=== PATIENT | female | born 1955 | race Caucasian/White ===

== ENCOUNTER 2021-11-14 17:21 | Emergency (ER) | payer MEDICARE, OTHER | END 2021-11-14 18:30 | disposition left against medical advice (07) | LOC: ER 17:21 | DX: R05.9 Cough, unspecified (principal); Z53.21 Procedure and treatment not carried out due to patient leaving prior to being seen by health care provider ==

== ENCOUNTER → 2022-01-06 | Outpatient (CLI) | payer MEDICARE, OTHER ==
--- NOTE | 2022-01-06 13:52 | DIREP ---
PROCEDURE:XRAY KNEE 2 VWS-RT COMPARISON:None. INDICATIONS:PAIN IN RT KNEE FINDINGS: BONES:Normal. JOINTS:Mild tricompartmental degenerative changes. This is largest in the lateral compartment. No joint effusion. SOFT TISSUES:Normal. OTHER:No additional findings. CONCLUSION:Degenerative changes without acute bony abnormality. Dictated by: Traci Senior M.D. on 01/06/2022 at 01:49 PM
== END | disposition home or self-care (01) ==
LOC: RAD 12:49
PROVIDERS: ATTEND Specialist
DX: M17.11 Unilateral primary osteoarthritis, right knee (principal); M25.561 Pain in right knee
CPT/HCPCS: 73560

== ENCOUNTER 2022-04-11 02:22 | Emergency (ER) | payer MEDICARE, OTHER ==
[~2022-04-11] VITALS: Ht 154.9 cm; Wt 54.9 kg
[2022-04-11 02:25] VITALS: BP 144/98
--- NOTE | 2022-04-11 02:25 | NUR ---
ARRIVAL ARRIVED VIA EMS. ALERT AND ORIENTED X3. SOB, CHEST PAIN WITH INSPIRATION FOR 5 DAYS, WORSENING TODAY. GRUNTING NOTED, WHEEZING BILAT. RR-26. O2 SAT 90% ON RA. NOTIFIED DR. VILLEDA. EKG IN PROCESS, ALL ORDERS ADMINISTERED ORDERED.
--- NOTE | 2022-04-11 02:34 | ER.PDOC ---
General Stated Complaint: SOB Time seen by MD: 02:31 Source: patient Exam Limitations: no limitations History of Present Illness Initial Comments Shortness of breath worse with exertion and right chest pain with inspiration for 5 days. No fever or chills. No cough. Patient does not use oxygen during the day but uses 2 L of oxygen at night. When EMS arrived on scene, her oxygen saturation was 84% on room air. Severity: moderate Prior Episodes/Possible Cause: occasional episodes, chronic episodes Modifying Factors: improves with albuterol nebulizer Associated Symptoms: chest pain (right with inspiration), wheezing Allergies: Coded Allergies: No Known Allergies (Unverified , 04/11/22) Past Medical History Medical History: COPD Family History Significant Family History: no pertinent family hx Social History Smoking: non-smoker Alcohol Use: none Drug Use: none Review of Systems Constitutional: no symptoms reported EENTM: no symptoms reported Respiratory: see HPI Cardiovascular: see HPI Gastrointestinal: no symptoms reported All Other Systems: Reviewed and Negative Physical Exam General Appearance: WD/WN, Moderate Distress HEENT: PERRL/EOMI, Normal ENT Inspection, TMs Normal, Pharynx Normal Neck: Non-Tender, Full Range of Motion, Supple, Normal Inspection Respiratory: chest non-tender, respiratory distress, crackles, wheezing Cardiovascular: Normal Peripheral Pulses, Regular Rate, Rhythm, No Edema, No Gallop, No JVD, No Murmur Gastrointestinal: Normal Bowel Sounds, No Organomegaly, No Pulsatile Mass, Non Tender, Soft Extremities: Normal Range of Motion, Non-Tender, Normal Inspection, No Pedal Edema, No Calf Tenderness, Normal Capillary Refill Neurologic/Psychiatric: manager of global II-XII NML as Tested, No Motor/Sensory Deficits, Alert, Normal Mood/Affect, Oriented x 3 Skin: Normal Color, Warm/Dry Lymphatic: No Adenopathy Results/Orders Results/Orders Orders - CHRISTIANA MCKINNEY MD Cbc With Auto Diff (04/11/22 02:29) Comprehensive Metabolic Panel (04/11/22 02:29) Creatine Kinase (04/11/22 02:29) Creatine Kinase Mb (04/11/22 02:29) Probnp B-Type Retrimmer (04/11/22 02:29) D-Dimer (04/11/22 02:29) PT (04/11/22 02:29) Partial Thromboplastin Time. (04/11/22 02:29) Blood Culture (04/11/22 02:29) Ekg-Routine (04/11/22 02:29) Xr Chest 1v (04/11/22 02:29) Troponin I High Sensitivity (04/11/22 02:29) Lactic Acid(Ml) (04/11/22 02:29) Procalcitonin (04/11/22 02:29) Arterial Blood Gas (04/11/22 02:29) Covid19 Antigen Reta Sarah (04/11/22 02:29) Ipratropium/Albuterol Sulfate (Duo 0.5-3 (04/11/22 02:29) 0.9 % Sodium Chloride (Ns 1000ml) (04/11/22 03:51) Ceftriaxone Sodium (Rocephin) (04/11/22 03:51) Azithromycin (Zithromax) (04/11/22 03:51) Cta Chest (04/11/22 03:51) 0.9 % Sodium Chloride (Ns 100ml) (04/11/22 04:16) 0.9 % Sodium Chloride (Ns 1000ml) (04/11/22 04:16) 0.9 % Sodium Chloride (Ns 250ml) (04/11/22 04:20) Cefazolin Sodium/Dextrose,Iso (Ancef 2 G (04/11/22 04:27) Cefazolin Sodium/Dextrose,Iso (Ancef 2 G (04/11/22 04:30) Sodium Chloride 0.45 % (Hns 1000ml) (04/11/22 05:34) Vital Signs Date Time Temp Pulse Resp B/P (MAP) Pulse Ox O2 Delivery O2 Flow Rate FiO2 04/11/22 04:53 98.9 82 24 132/82 (99) 93 Nasal Cannula* 2 28 04/11/22 02:25 98.9 71 26 144/98 (113) 90 Room Air* 0 21 04/11/22 02:25 98.9 71 26 90 04/11/22 02:25 98.9 71 26 Administered Medications Medications (Trade) Dose Ordered Sig/Velasquez Route PRN Reason Start Time Stop Time Status Last Admin Dose Admin Albuterol/ Ipratropium (Duo 0.5-3(2.5) Mg/3 ml) 3 ml STAT STAT IH 04/11/22 02:29 04/11/22 02:32 DC 04/11/22 02:57 3 ML Azithromycin 500 mg/Sodium Chloride 250 ml @ 175 mls/hr STAT STAT IV 04/11/22 03:51 04/11/22 05:16 DC 04/11/22 04:30 175 MLS/HR Ceftriaxone Sodium 2000 mg/ Sodium Chloride 100 ml @ 100 mls/hr STAT STAT IV 04/11/22 03:51 04/11/22 04:50 DC 04/11/22 04:32 100 MLS/HR Sodium Chloride 1,000 ml @ 75 mls/hr [id number] STAT IV 04/11/22 05:34 04/11/22 18:53 UNV 04/11/22 05:46 75 MLS/HR Sodium Chloride 1,000 ml @ 1,200 mls/hr Q50M STAT IV 04/11/22 03:51 04/11/22 04:40 DC 04/11/22 04:27 1,200 MLS/HR Laboratory Tests Test 04/11/22 02:40 04/11/22 02:45 04/11/22 04:45 White Blood Count 22.0 10^3/uL (4.5-11.0) H Red Blood Count 5.19 10^6/uL (4.00-5.20) Hemoglobin 14.4 g/dL (12.0-15.0) Hematocrit 46.7 % (36.0-46.0) H Mean Corpuscular Volume 90.0 fL (78-100) Mean Corpuscular Hemoglobin 27.7 pg (26-34) Mean Corpuscular Hemoglobin Concent 30.8 g/dL (33-36.5) L Red Cell Distribution Width 15.6 % (11.5-14.5) H Platelet Count 315 10^3/uL (150-400) Mean Platelet Volume 10.0 fL (7.8-11.0) Neutrophils (%) (Auto) 86.4 % (41.0-85.0) H Lymphocytes (%) (Auto) 8.7 % (24.0-44.0) L Monocytes (%) (Auto) 4.4 % (5.0-12.0) L Neutrophils # (Auto) 19.0 10^3/uL (1.8-7.7) H Lymphocytes # (Auto) 1.92 10^3/uL1 (1.0-4.8) Monocytes # (Auto) 1.0 10^3/uL (0.3-0.8) H Absolute Immature Granulocyte (auto 0.08 10^3 u/L (0-2) Absolute Eosinophils (auto) 0.0 10^3/uL (0.0-0.2) Immature Granulocytes % 0.40 % (0.00-0.50) Eosinophils % 0.0 % (0.0-5.0) Basophils % 0.1 % (0.0-0.2) Basophils # 0.0 10^3/uL (0.0-0.1) Prothrombin Time 10.9 SEC (9.1-11.5) Prothrombin Time INR (Non-Therap) 1.1 Activated Partial Thromboplast Time 23.6 SEC (22.5-33.1) D-Dimer 3.43 mg/L (0.19-0.49) *H Sodium Level 139 mmol/L (132-145) Potassium Level 5.1 mmol/L (3.6-5.2) Chloride Level 105.0 mmol/L (96-109) Carbon Dioxide Level 24.0 mmol/L (20.0-32) Anion Gap 15.1 Blood Urea Nitrogen 22 mg/dL (7-18) H Creatinine 1.30 mg/dL (0.59-1.40) Estimated GFR () 49.3 (>/=60) Est GFR (CKD-EPI)(Non-Afr Italian) 40.7 (>/=60) BUN/Creatinine Ratio 16.0 Glucose Level 314 mg/dL (70-110) H Lactic Acid Level 2.3 mmol/L (0.5-1.9) *H Calcium Level 9.1 mg/dL (8.4-10.5) Total Bilirubin 0.3 mg/dL (0.2-1.0) Aspartate Amino Transferase (AST) 16 U/L (0-35) Alanine Aminotransferase (ALT) 31 U/L (12-78) Alkaline Phosphatase 227 U/L (50-136) H Total Creatine Kinase 20 U/L (26-192) L Creatine Kinase MB 1.7 ng/mL (0.5-3.6) Troponin I High Sensitivity 6 ng/L (0-50) Pro-B-Type Natriuretic Peptide 3055 pg/mL (0-125) H Total Protein 7.6 g/dL (6.4-8.2) Albumin 3.5 g/dL (3.4-5.0) Globulin 4.1 Albumin/Globulin Ratio 0.853 Procalcitonin < 0.05 ng/mL (0.05-0.5) L Blood Gas Sample Site RT BRACIAL ARTERY Blood pH 7.352 (7.350-7.450) Blood Gas PCO2 37.9 mmHg (35.0-45.0) Blood Gas PO2 54.4 mmHg (80.0-100.0) L Blood Gas HCO3 20.5 mmol/L (22.0-26.0) L Blood Gas Base Excess -4.5 mmol/L (-2.0-2.0) L Jerome Test POSITIVE Arterial Blood Oxygen Saturation 88.1 % (94.0-97.00) L Deoxyhemoglobin 11.8 % (0.0-5.0) H Carboxyhemoglobin 0.7 % (0.0-3.9) Methemoglobin 0.1 % (0.00-5.0) Total Hemoglobin 14.4 % (12.0-17.8) Total Oxygen Concentration 17.7 % (13.5-17.5) H Blood Gas Temperature 37.0 Oxygen Delivery Method ROOM AIR FiO2 20.8 % (20-101) Total Carbon Dioxide 21.7 mmol/L (23-27) L SARS-CoV-2 Antigen (Rapid) NEGATIVE (NEGATIVE) Lactic Acid Followup at 2 Hours 1.4 mmol/L (0.5-1.9) Progress Progress CTA Chest: Findings concerning for left lower lobe pneumonia with extensive postobstructive consolidation/inspissated debris in the left lower lobe bronchus. 2. Multifocal tree-in-bud opacities. Additional nodules along the pleura at the right upper lobe measuring up to 1 cm. Given constellation of findings present, follow-up CT chest in 3 months may be the best option for this patient. Nodules of this size have the recommendation for follow-up CT chest in 3 months, PET-CT or biopsy by Fleischner society criteria. 3. Trace right pleural fluid. Spoke with Dr. Moses and because patient has inspissated debris in the left lower lobe bronchus with postobstructive consolidation, we are both of the opinion that she would need a bronchoscopy and so is transferred to [facility] for a rubber process hand. EKG/XRAY/CT/US EKG: NSR EKG Comments: HR 81, normal P axis ER DEPART Departure Time of Disposition: 06:08 Disposition: 02 SHORT TERM HOSPITAL Impression: Primary Impression: Sepsis Additional Impressions: Postobstructive pneumonia Other diseases of bronchus, not elsewhere classified Respiratory failure, acute and chronic COPD exacerbation Condition: Stable Comments Transfer to [facility] ED for Dr. Zelaya Duration or Time Spent with Pa: 60 min Critical Care Note Total Time (mins): 60 Problem Qualifiers Primary Impression: Sepsis Sepsis type: sepsis due to unspecified organism Sepsis acute organ dysfunction status: unspecified Qualified Codes: A41.9 - Sepsis, unspecified organism Additional Impressions: Respiratory failure, acute and chronic Respiratory failure complication: hypoxia Qualified Codes: J96.21 - Acute and chronic respiratory failure with hypoxia CHRISTIANA MCKINNEY MD Apr 11, 2022 02:34
--- NOTE | 2022-04-11 02:43 | PCM.EKG ---
[facility] Test Date: 2022-04-11 Test Time: 02:37:24 Pat Name: ELVER SULLIVAN Department: Room: Gender: F Business Process Lead: kmcg : 1955 Requested By: CHRISTIANA MCKINNEY Order Number: [id number] Reading MD: Christiana MCKINNEY Measurements Intervals [place] Rate: 81 P: 31 [place]: 143 QRS: 0 QRSD: 82 T: 32 QT: 363 QTc: 422 Interpretive Statements Sinus rhythm No previous ECG available for comparison Electronically Signed On 04-11-2022 20:03:05 CDT by Christiana MCKINNEY Please click the below link to view image of tracing.
[2022-04-11 02:49] LABS: BASOPHIL % 0.1 % (0.0-0.2); LYMPHOCYTES # 1.92 10^3/uL1 (1.0-4.8); LYMPHOCYTES % 8.7 % (24.0-44.0); MEAN CORP HGB 27.7 pg (26-34); MONOCYTES % 4.4 % (5.0-12.0); NEUTROPHILS % 86.4 % (41.0-85.0); PLATELET COUNT 315 10^3/uL (150-400); RED CELL DISTRIBUTION WIDTH 15.6 % (11.5-14.5)
--- NOTE | 2022-04-11 02:52 | DIREP ---
PROCEDURE:CHEST 1 VIEW COMPARISON:None. INDICATIONS:SOB FINDINGS: LUNGS/PLEURA:There is a infiltrate in the left lung base concerning for pneumonia. Additional more subtle ground-glass opacities in the right infrahilar region and along the periphery of the right upper lobe. Findings may represent viral pneumonia, covid possible. No effusions. No pneumothorax. VASCULATURE:Unremarkable pulmonary vasculature. CARDIAC:No cardiac silhouette abnormality or cardiomegaly. MEDIASTINUM:No visible mass or adenopathy. BONES:No fracture or visible bony lesion. OTHER:Negative. CONCLUSION: 1. Multifocal infiltrates concerning for pneumonia, please see above comments. Dictated by: Yue Astudillo MD on 04/11/2022 at 02:50 AM
[2022-04-11 02:56] LABS: ABG PCO2 37.9 mmHg (35.0-45.0); ABG PH 7.352 (7.350-7.450); BE(B) -4.5 mmol/L (-2.0-2.0); HCO3act 20.5 mmol/L (22.0-26.0); pO2 54.4 mmHg (80.0-100.0)
[2022-04-11] MEDS: DUO 0.5-3(2.5) MG/3 ML IH STA (02:57)
--- NOTE | 2022-04-11 03:23 | NUR ---
CRITICAL LAB D-DIMER 3.43. REPORTED TO DR. VILLEDA. NO NEW ORDERS AT THIS TIME.
[2022-04-11] MEDS ORDERED: NS 100ML 200 ML IV ONE (04:16)
[2022-04-11] MEDS ORDERED: NS 1000ML 1,000 ML ONE (04:16)
[2022-04-11] MEDS ORDERED: NS 250ML 250 ML ONE (04:20)
[2022-04-11] MEDS: NS 1000ML 1,000 ML IV STA (04:27)
[2022-04-11] MEDS: ZITHROMAX 500 MG in NS 250ML 250 ML IV STA (04:30)
[2022-04-11] MEDS: ANCEF 2 GM/D5W 50ML 50 ML IV ONE ×2 (04:31→04:32)
[2022-04-11] MEDS: ROCEPHIN 2,000 MG in NS 100ML 100 ML IV STA (04:32)
[2022-04-11 04:53] VITALS: BP 132/82
--- NOTE | 2022-04-11 05:15 | DIREP ---
PROCEDURE:CTA CHEST COMPARISON:[facility], CR, XRAY CHEST SINGLE VW, 04/11/2022, 02:29 AM. INDICATIONS:Shortness of breath TECHNIQUE:Post contrast axial images through the chest with multiplanar MIP/3D reconstructions. FINDINGS: PULMONARY ARTERIES:No central or saddle embolism. Evaluation of the mid and distal segmental pulmonary arteries is limited due to contrast. LUNGS:There is inspissated debris in the bronchus to the left lower lobe. There is postobstructive consolidation of the left lower lobe concerning for pneumonia. Additional nodules abutting the pleura at the right upper lobe measuring up to 1 cm. Question a few tree-in-bud opacities in the right upper lobe with multiple tiny nodules. There are numerous tree-in-bud opacities in the superior segments of the lower lobes as well. PLEURA:Trace right pleural fluid. CARDIAC:Normal size heart and normal pulmonary vascularity. THORACIC AORTA:Normal. MEDIASTINUM:Mild circumferential wall thickening of the distal esophagus may be infectious, inflammatory or suggest underlying lesion. Calcified mediastinal lymph nodes. THYROID:Normal. BONES:Normal. OTHER:No additional findings. CONCLUSION: 1. Findings concerning for left lower lobe pneumonia with extensive postobstructive consolidation/inspissated debris in the left lower lobe bronchus. 2. Multifocal tree-in-bud opacities. Additional nodules along the pleura at the right upper lobe measuring up to 1 cm. Given constellation of findings present, follow-up CT chest in 3 months may be the best option for this patient. Nodules of this size have the recommendation for follow-up CT chest in 3 months, PET-CT or biopsy by Fleischner society criteria. 3. Trace right pleural fluid. Dictated by: Yue Astudillo MD on 04/11/2022 at 05:07 AM
[2022-04-11] MEDS: HNS 1000ML 1,000 ML IV STA (05:46)
--- NOTE | 2022-04-11 06:05 | NUR ---
[facility] ACCEPTED TRANSFERRING TO [facility] FOR DEBRIS IN THE LEFT BRONCHUS. NEEDING MONIK, UNAVAILABLE AT THIS FACILITY. ACCEPTING PHYSICIAN DR. DORAN @ 0605, MORRIS PHILLIP RN INITIAL CONTACT 0603. TRANSFER TO [facility] ER.
--- NOTE | 2022-04-11 06:35 | NUR ---
DISPATCH DISPATCH NOTIFIED OF PATIENT TRANSFER.
--- NOTE | 2022-04-11 06:41 | NUR ---
UPDATE EMS CALLED, WANTS TO WAIT UNTIL SHIFT CHANGE AT 0800, DOCTOR FAYE ON THE PHONE WITH AMOS AT THIS TIME.
--- NOTE | 2022-04-11 06:53 | NUR ---
Report received. Pt lying supine HOB 60. eyes open, A/O, able to follow commands. VSS afebrile, 128/63, p87, rr24, 93% 2Lnc.IVF continued. Audible grunt w/ accessory muscle use. Pt requesting lights out while waiting for EMS transfer.
[2022-04-11 06:55] VITALS: BP 132/82
== END 2022-04-11 07:25 | disposition short-term general hospital (02) ==
LOC: ER 02:22 → MERGE 02:22 → ER 07:25
DX: A41.9 Sepsis, unspecified organism (principal); Z20.822 Contact with and (suspected) exposure to COVID-19; J18.9 Pneumonia, unspecified organism; J96.21 Acute and chronic respiratory failure with hypoxia; J44.1 Chronic obstructive pulmonary disease with (acute) exacerbation
CPT/HCPCS: 36415; 36600; 71045; 71275; 80053; 82550; 82553; 82803; 83605 ×2; 83880; 84145; 84484; 85025; 85379; 85610; 85730; 87040 ×2; 87426; 93005; 96365; 96368; 99291; J0456; J0696; J7030; J7050 ×2; Q9965; J0690

== ENCOUNTER 2022-10-10 05:00 | Inpatient (IN) | payer MEDICARE, OTHER ==
[~2022-10-10] VITALS: Ht 152.4 cm; Wt 58.1 kg
--- NOTE | 2022-10-10 05:00 | NUR ---
Arrival 67 y/o female presents to ED via EMS c/o dyspnea x 4 days pt states her lungs hurt, resp shallow, labored, rapid, audible wheezes, skin pale warm dry febrile temp 99.0, 02 2liters applied. monitors applied, Dr. Lind at bedside
[2022-10-10] MEDS ORDERED: DUO 0.5-3(2.5) MG/3 ML IH STA (05:25)
[2022-10-10] MEDS ORDERED: SOLU-MEDROL IV STA (05:25)
[2022-10-10] MEDS ORDERED: DECADRON IH STA (05:25)
[2022-10-10 05:30] VITALS: BP 131/72
[2022-10-10 05:38] LABS: BASOPHIL % 0.1 % (0.0-0.2); EOSINOPHIL # 0.4 10^3/uL (0.0-0.2); EOSINOPHIL % 2.4 % (0.0-5.0); LYMPHOCYTES # 1.83 10^3/uL1 (1.0-4.8); LYMPHOCYTES % 12.4 % (24.0-44.0); MEAN CORP HGB 28.1 pg (26-34); MONOCYTES # 1.3 10^3/uL (0.3-0.8); MONOCYTES % 8.9 % (5.0-12.0); NEUTROPHIL # 11.2 10^3/uL (1.8-7.7); NEUTROPHILS % 76.2 % (41.0-85.0); PLATELET COUNT 244 10^3/uL (150-400); RED CELL DISTRIBUTION WIDTH 14.3 % (11.5-14.5)
--- NOTE | 2022-10-10 05:42 | PCM.EKG ---
[facility] Test Date: 2022-10-10 Test Time: 05:38:12 Pat Name: ELVER SULLIVAN Department: Room: 330 Gender: F Linen Room Attendant: MOMO : 1955 Requested By: CHRISTIANA MCKINNEY Order Number: [id number] Reading MD: Christiana MCKINNEY Measurements Intervals [place] Rate: 111 P: 65 RI: 138 QRS: 55 QRSD: 110 T: 48 QT: 308 QTc: 419 Interpretive Statements Sinus tachycardia Ventricular premature complex Aberrant conduction of SV complex(es) Compared to ECG 04/11/2022 02:37:24 Ventricular premature complex(es) now present Aberrant conduction of supraventricular beat(s) now present Sinus rhythm no longer present Electronically Signed On 10-12-2022 7:19:55 ARTILLERY MAINTENANCE SUPERVISOR by Christiana MCKINNEY Please click the below link to view image of tracing.
--- NOTE | 2022-10-10 05:53 | DIREP ---
PROCEDURE:CHEST 1 VIEW COMPARISON:[facility], CT, CTA CHEST, 04/11/2022, 04:17 AM. [facility], CR, XRAY CHEST SINGLE VW, 04/11/2022, 02:29 AM. [facility], CR, XRAY CHEST 2 VWS, 12/13/2019, 11:48 AM. INDICATIONS:SOB FINDINGS: LUNGS/PLEURA:There are [id number] patchy interstitial and alveolar opacities throughout the right lung. There are mild interstitial and alveolar opacities in the left perihilar and infrahilar regions. No effusion or pneumothorax. VASCULATURE:Normal. Unremarkable pulmonary vasculature. CARDIAC:Normal. No cardiac silhouette abnormality or cardiomegaly. MEDIASTINUM:Calcified mediastinal lymph nodes compatible with prior granulomatous disease. Aortic arch calcifications. BONES:Osteopenia. Thoracic spondylosis. No acute findings. OTHER:There are surgical clips present in the right upper quadrant compatible with prior cholecystectomy. CONCLUSION:Findings consistent with multifocal pneumonia, right greater than left. Dictated by: Aidan Lynch M.D. on 10/10/2022 at 05:44 AM
[2022-10-10 05:54] LABS: ABG PCO2 38.1 mmHg (35.0-45.0); ABG PH 7.303 (7.350-7.450); BE(B) -7.3 mmol/L (-2.0-2.0); HCO3act 18.5 mmol/L (22.0-26.0); pO2 65.1 mmHg (80.0-100.0)
[2022-10-10] MEDS ORDERED: DUO 0.5-3(2.5) MG/3 ML IH ONE (06:03)
[2022-10-10 06:04] LABS: CARBON DIOXIDE 25.4 mmol/L (20.0-32); GLUCOSE 169 mg/dL (70-110)
[2022-10-10] MEDS ORDERED: DECADRON ONE (06:04)
--- NOTE | 2022-10-10 06:14 | ER.PDOC ---
General Chief Complaint: Dyspnea/Respdistress Stated Complaint: SOB Time seen by MD: 06:06 Source: patient Exam Limitations: no limitations History of Present Illness Initial Comments Shortness of breath and cough for the last couple of days worse this morning. No fever or chills. Patient saw her PCP 3 days ago and was placed on medications. She got worse so she decided to come here. Severity: moderate Prior Episodes/Possible Cause: occasional episodes, chronic episodes Associated Symptoms: cough Allergies: Coded Allergies: No Known Allergies (Unverified , 11/05/17) Past Medical History Medical History: congestive heart failure, COPD, hypertension Surgical History: gastric bypass Family History Significant Family History: no pertinent family hx Social History Smoking: non-smoker Alcohol Use: none Drug Use: none Review of Systems Constitutional: no symptoms reported EENTM: no symptoms reported Respiratory: see HPI Cardiovascular: no symptoms reported Gastrointestinal: no symptoms reported All Other Systems: Reviewed and Negative Physical Exam General Appearance: WD/WN, Moderate Distress HEENT: PERRL/EOMI, Normal ENT Inspection, TMs Normal, Pharynx Normal Neck: Non-Tender, Full Range of Motion, Supple, Normal Inspection Respiratory: respiratory distress, crackles, prolonged expirations, wheezing, expiration Cardiovascular: Normal Peripheral Pulses, Regular Rate, Rhythm, No Edema, No Gallop, No JVD, No Murmur, Tachycardia Gastrointestinal: Normal Bowel Sounds, No Organomegaly, No Pulsatile Mass, Non Tender, Soft Extremities: Normal Range of Motion, Non-Tender, Normal Inspection, No Pedal Edema, No Calf Tenderness, Normal Capillary Refill Neurologic/Psychiatric: mending carrier II-XII NML as Tested, No Motor/Sensory Deficits, Alert, Normal Mood/Affect, Oriented x 3 Skin: Normal Color, Warm/Dry Lymphatic: No Adenopathy Results/Orders Results/Orders Orders - CHRISTIANA MCKINNEY MD Arterial Blood Gas (10/10/22 05:25) Cbc With Auto Diff (10/10/22 05:25) Comprehensive Metabolic Panel (10/10/22 05:25) Creatine Kinase (10/10/22 05:25) Creatine Kinase Mb (10/10/22 05:25) Probnp B-Type Computing Machine Operator (10/10/22 05:25) D-Dimer (10/10/22 05:25) PT (10/10/22 05:25) Partial Thromboplastin Time. (10/10/22 05:25) Blood Culture (10/10/22 05:25) Ekg-Routine (10/10/22 05:25) Xr Chest 1v (10/10/22 05:25) Troponin I High Sensitivity (10/10/22 05:25) Lactic Acid(Ml) (10/10/22 05:25) Procalcitonin (10/10/22 05:25) Influenza A&B (10/10/22 05:25) Covid19 Antigen Reta Sarah (10/10/22 05:25) Ipratropium/Albuterol Sulfate (Duo 0.5-3 (10/10/22 05:25) Dexamethasone Sodium Phosp/Pf (Decadron) (10/10/22 05:25) Methylprednisolone Sod Succ (Solu-Medrol (10/10/22 05:25) Ipratropium/Albuterol Sulfate (Duo 0.5-3 (10/10/22 06:03) Dexamethasone Sodium Phosp/Pf (Decadron) (10/10/22 06:04) 0.9 % Sodium Chloride (Ns 100ml) (10/10/22 06:16) Ceftriaxone Sodium (Rocephin) (10/10/22 06:15) Azithromycin (Zithromax) (10/10/22 06:15) Ceftriaxone Sodium (Rocephin) (10/10/22 06:17) Vital Signs Date Time Temp Pulse Resp B/P (MAP) Pulse Ox O2 Delivery O2 Flow Rate FiO2 10/10/22 05:30 99.0 116 36 131/72 (91) 73 Room Air* 0 21 10/10/22 05:30 99.0 116 36 10/10/22 05:30 99.0 116 36 73 Administered Medications Medications (Trade) Dose Ordered Sig/Velasquez Route PRN Reason Start Time Stop Time Status Last Admin Dose Admin Albuterol/ Ipratropium (Duo 0.5-3(2.5) Mg/3 ml) 3 ml STAT STAT IH 10/10/22 05:25 10/10/22 05:29 DC 10/10/22 06:08 3 ML Ceftriaxone Sodium 2000 mg/ Sodium Chloride 100 ml @ 100 mls/hr STAT STAT IV 10/10/22 06:15 10/10/22 07:14 UNV 10/10/22 06:23 100 MLS/HR Laboratory Tests Test 10/10/22 05:19 10/10/22 05:25 White Blood Count 14.7 10^3/uL (4.5-11.0) H Red Blood Count 4.49 10^6/uL (4.00-5.20) Hemoglobin 12.6 g/dL (12.0-15.0) Hematocrit 41.0 % (36.0-46.0) Mean Corpuscular Volume 91.3 fL (78-100) Mean Corpuscular Hemoglobin 28.1 pg (26-34) Mean Corpuscular Hemoglobin Concent 30.7 g/dL (33-36.5) L Red Cell Distribution Width 14.3 % (11.5-14.5) Platelet Count 244 10^3/uL (150-400) Mean Platelet Volume 10.7 fL (7.8-11.0) Neutrophils (%) (Auto) 76.2 % (41.0-85.0) Lymphocytes (%) (Auto) 12.4 % (24.0-44.0) L Monocytes (%) (Auto) 8.9 % (5.0-12.0) Neutrophils # (Auto) 11.2 10^3/uL (1.8-7.7) H Lymphocytes # (Auto) 1.83 10^3/uL1 (1.0-4.8) Monocytes # (Auto) 1.3 10^3/uL (0.3-0.8) H Absolute Immature Granulocyte (auto 0.07 10^3 u/L (0-2) Absolute Eosinophils (auto) 0.4 10^3/uL (0.0-0.2) H Immature Granulocytes % 0.50 % (0.00-0.50) Eosinophils % 2.4 % (0.0-5.0) Basophils % 0.1 % (0.0-0.2) Basophils # 0.0 10^3/uL (0.0-0.1) Prothrombin Time 11.0 SEC (9.1-11.5) Prothrombin Time INR (Non-Therap) 1.1 Activated Partial Thromboplast Time 26.1 SEC (22.5-33.1) D-Dimer 3.55 mg/L (0.19-0.49) *H Sodium Level 141 mmol/L (132-145) Potassium Level 4.8 mmol/L (3.6-5.2) Chloride Level 104.0 mmol/L (96-109) Carbon Dioxide Level 25.4 mmol/L (20.0-32) Anion Gap 16.4 Blood Urea Nitrogen 23 mg/dL (7-18) H Creatinine 0.95 mg/dL (0.59-1.40) Estimated GFR () 70.6 (>/=60) Est GFR (CKD-EPI)(Non-Afr Cymro) 58.3 (>/=60) BUN/Creatinine Ratio 24.0 Glucose Level 169 mg/dL (70-110) H Lactic Acid Level 1.6 mmol/L (0.5-1.9) Calcium Level 9.1 mg/dL (8.4-10.5) Total Bilirubin 0.6 mg/dL (0.2-1.0) Aspartate Amino Transferase (AST) 23 U/L (0-35) Alanine Aminotransferase (ALT) 14 U/L (12-78) Alkaline Phosphatase 214 U/L (50-136) H Total Creatine Kinase 30 U/L (26-192) Creatine Kinase MB 1.1 ng/mL (0.5-3.6) Troponin I High Sensitivity < 4 ng/L (0-50) Pro-B-Type Natriuretic Peptide 1244 pg/mL (0-125) H Total Protein 7.3 g/dL (6.4-8.2) Albumin 3.4 g/dL (3.4-5.0) Globulin 3.9 Albumin/Globulin Ratio 0.871 Procalcitonin 1.20 ng/mL (0.05-0.5) *H Influenza Type A Antigen NEGATIVE (NEG) Influenza Type B Antigen NEGATIVE (NEG) SARS-CoV-2 Antigen (Rapid) NEGATIVE (NEGATIVE) Blood Gas Sample Site RT RADIAL ARTERY Blood pH 7.303 (7.350-7.450) Blood Gas PCO2 38.1 mmHg (35.0-45.0) Blood Gas PO2 65.1 mmHg (80.0-100.0) L Blood Gas HCO3 18.5 mmol/L (22.0-26.0) L Blood Gas Base Excess -7.3 mmol/L (-2.0-2.0) L Jerome Test POSITIVE Arterial Blood Oxygen Saturation 90.7 % (94.0-97.00) L Deoxyhemoglobin 9.2 % (0.0-5.0) H Carboxyhemoglobin 0.7 % (0.0-3.9) Methemoglobin 0.0 % (0.00-5.0) Total Hemoglobin 12.6 % (12.0-17.8) Total Oxygen Concentration 16.0 % (13.5-17.5) Blood Gas Temperature 37.0 Oxygen Delivery Method NASAL CANNULA FiO2 28.0 % (20-101) Total Carbon Dioxide 19.6 mmol/L (23-27) L Progress Progress CXR: Findings consistent with multifocal pneumonia, right greater than left. EKG/XRAY/CT/US EKG: NSR EKG Comments: HR 111, sinus tachycardia ER DEPART Departure Time of Disposition: 06:12 Disposition: 09 ADMITTED INPATIENT Impression: Primary Impression: Sepsis Additional Impressions: Pneumonia COPD exacerbation Condition: Stable Referrals: LASHAWN MENDIOLA MD (PCP) PRIMARY CARE PROVIDER Comments Admitted to Dr. Warren Duration or Time Spent with Pa: 60 min Critical Care Note Total Time (mins): 60 Problem Qualifiers Primary Impression: Sepsis Sepsis type: sepsis due to unspecified organism Sepsis acute organ dysfunction status: unspecified Qualified Codes: A41.9 - Sepsis, unspecified organism Additional Impressions: Pneumonia Pneumonia type: due to unspecified organism Laterality: bilateral Lung location: unspecified part of lung Qualified Codes: J18.9 - Pneumonia, unspecified organism CHRISTIANA MCKINNEY MD Oct 10, 2022 06:14
[2022-10-10] MEDS ORDERED: ROCEPHIN 2,000 MG in NS 100ML 100 ML IV STA (06:15)
[2022-10-10] MEDS ORDERED: ZITHROMAX 500 MG in NS 250ML 250 ML IV STA (06:15)
[2022-10-10] MEDS ORDERED: NS 100ML 100 ML IV ONE (06:16)
[2022-10-10] MEDS ORDERED: ROCEPHIN ONE (06:17)
--- NOTE | 2022-10-10 06:17 | NUR ---
Critical Lab Procal 1.2 Dr. Lind notified.
[2022-10-10] MEDS ORDERED: NS 250ML 250 ML ONE (06:39)
[2022-10-10 07:09] VITALS: BP 130/75
[2022-10-10] MEDS ORDERED: ZOFRAN IV PRN (07:30)
[2022-10-10] MEDS ORDERED: DUO 0.5-3(2.5) MG/3 ML IH PRN (07:30)
[2022-10-10] MEDS ORDERED: MORPHINE SULFATE IV PRN (07:30)
[2022-10-10] MEDS ORDERED: TYLENOL PO PRN (07:30)
[2022-10-10] MEDS: NORCO 10MG PO PRN ×2 (08:44→18:28)
--- NOTE | 2022-10-10 09:00 | DIREP ---
PROCEDURE:CTA CHEST COMPARISON:[facility], CT, CTA CHEST, 04/11/2022, 04:17 AM. INDICATIONS:dyspnea TECHNIQUE:Post contrast axial images through the chest with multiplanar MIP/3D reconstructions. FINDINGS: PULMONARY ARTERIES:No appreciable pulmonary embolus. LUNGS:Pulmonary hyperinflation. Diffuse interstitial thickening throughout the bilateral hemithoraces with patchy ground-glass appearing opacities bilaterally, suggesting multifocal infectious or inflammatory pneumonitis. There is more consolidative pneumonia within the mid to inferior hemithoraces bilaterally. Trace bilateral pleural effusions. No pneumothorax. CARDIAC:The heart is not enlarged. There is no pericardial effusion. THORACIC AORTA:Mild scattered atherosclerotic calcifications. No aneurysm or dissection. MEDIASTINUM:Small nodules within the thyroid lobes bilaterally, measuring up to approximately 1 cm on the left. There are multiple calcified hilar and mediastinal lymph nodes. No suspicious mediastinal lymphadenopathy. Patulous gas-filled esophagus with apparent postoperative changes of the stomach. BONES:Degenerative changes of the spine. No acute abnormality. CONCLUSION: 1. No appreciable pulmonary embolus. 2. Patchy ground-glass appearing opacities within the bilateral hemithoraces would suggest multifocal infectious or inflammatory pneumonitis. There is more consolidative pneumonia within the mid to inferior hemithoraces bilaterally with trace bilateral pleural effusions. This is superimposed on a background of hyperinflation and diffuse interstitial thickening suggesting underlying chronic lung disease such as COPD. Small calcified hilar and mediastinal lymph nodes are similar to the previous study. 3. Additional findings as discussed above. Dictated by: David Carranza M.D. On 10/10/2022 at 08:44 AM
[2022-10-10] MEDS: PROTONIX IV IV SCH (09:44)
[2022-10-10] MEDS: MUCUS RELIEF PO SCH ×2 (09:44→21:39)
--- NOTE | 2022-10-10 11:44 | PCM.HP ---
HISTORY AND PHYSICAL Date of Arrival on Unit: Oct 10, 2022 Chief Complaint shortness of breath HPI 67 year old female with COPD, HTN, depression, GERD presented to the ED overnight for shortness of breath. Sx of dyspnea, cough, congestion present for 1 week. Denied fever or chills, GI sx, CP, abd pain, rash. She saw her PCP on 10/05/22 and was started on azithromycin and given IM Kenalog. in the ED she was found to have leukocytosis of 14,700. BNP of 1244 (no reported hx of CHF per clinic notes and no ECHO found). Lactic acid of 1.6. d-dimer elevated but no CTA in ED done. CXR revealed multifocal pneumonia with right greater than left. She was given Rocephin 2g and Azithromycin 500mg in the ED and was admitted. Allergies Allergies Coded Allergies No Known Allergies (Unverified11/05/17) Scheduled Gabapentin (Gabapentin), 1 TAB PO QID, (Reported) Paroxetine Hcl (Paroxetine Hcl), 1 TAB PO QD, (Reported) Spironolactone (Spironolactone), 1 TAB PO QD, (Reported) Scheduled PRN Cyclobenzaprine Hcl (Flexeril), 1 TAB PO HS PRN for MUSCLE SPASM, (Reported) Hydrocodone Bit/Acetaminophen ([place] 10-325), 1 EACH PO Q6HR PRN for PAIN, (Reported) Ipratropium/Albuterol Sulfate (Iprat-Albut 0.5-3(2.5) Mg/3 Ml), 1 AMPULE INH QID PRN for wheezing, (Reported) Other Pt history Problems Medical Problems: (1) COPD exacerbation Status: Acute ICD Codes: J44.1 - Chronic obstructive pulmonary disease with (acute) exacerbation SNOMED: 248694117 (2) COPD exacerbation Status: Acute ICD Codes: J44.1 - Chronic obstructive pulmonary disease with (acute) exacerbation SNOMED: 533605539 (3) Nausea after anesthesia Status: Acute ICD Codes: T88.59XA - Other complications of anesthesia, initial encounter; R 11.0 - Nausea SNOMED: 912286405, 74437425 (4) Other diseases of bronchus, not elsewhere classified Status: Acute ICD Codes: J98.09 - Other diseases of bronchus, not elsewhere classified SNOMED: 64153796 (5) Pneumonia Status: Acute ICD Codes: J18.9 - Pneumonia, unspecified organism SNOMED: 252026998 (6) Postobstructive pneumonia Status: Acute ICD Codes: J18.9 - Pneumonia, unspecified organism SNOMED: 007382351 (7) Respiratory failure, acute and chronic Status: Acute ICD Codes: J96.20 - Acute and chronic respiratory failure, unspecified whether with hypoxia or hypercapnia SNOMED: 94874982 (8) Sepsis Status: Acute ICD Codes: A41.9 - Sepsis, unspecified organism SNOMED: 56166019 (9) Sepsis Status: Acute ICD Codes: A41.9 - Sepsis, unspecified organism SNOMED: 22114423 ROS 12 point ROS negative other than stated in HPI. VITALS Vital Signs Date Time Temp Pulse Resp B/P (MAP) Pulse Ox O2 Delivery O2 Flow Rate FiO2 10/11/22 10:18 76 16 96 Nasal Cannula* 2 28 10/11/22 09:38 114/70 10/11/22 07:01 98.2 EXAM General Appearance: WD/WN, mild Distress HEENT: PERRL/EOMI, Normal ENT Inspection, TMs Normal, Pharynx Normal Neck: Non-Tender, Full Range of Motion, Supple, Normal Inspection Respiratory: respiratory distress, crackles, prolonged expirations, wheezing, expiration Cardiovascular: Normal Peripheral Pulses, Regular Rate, Rhythm, No Edema, No Gallop, No JVD, No Murmur, Tachycardia Gastrointestinal: Normal Bowel Sounds, No Organomegaly, No Pulsatile Mass, Non Tender, Soft Extremities: Normal Range of Motion, Non-Tender, Normal Inspection, No Pedal Edema, No Calf Tenderness, Normal Capillary Refill Neurologic/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, No Motor/Sensory Deficits, Alert, Normal Mood/Affect, Oriented x 3 Skin: Normal Color, Warm/Dry Lymphatic: No Adenopathy LAB/MARCUS/BBK/PATH Laboratory Tests Test 10/10/22 05:19 10/10/22 05:25 10/11/22 05:03 10/11/22 05:41 White Blood Count 14.7 10^3/uL (4.5-11.0) 18.8 10^3/uL (4.5-11.0) Red Blood Count 4.49 10^6/uL (4.00-5.20) 3.76 10^6/uL (4.00-5.20) Hemoglobin 12.6 g/dL (12.0-15.0) 10.6 g/dL (12.0-15.0) Hematocrit 41.0 % (36.0-46.0) 34.2 % (36.0-46.0) Mean Corpuscular Volume 91.3 fL (78-100) 91.0 fL (78-100) Mean Corpuscular Hemoglobin 28.1 pg (26-34) 28.2 pg (26-34) Mean Corpuscular Hemoglobin Concent 30.7 g/dL (33-36.5) 31.0 g/dL (33-36.5) Red Cell Distribution Width 14.3 % (11.5-14.5) 14.2 % (11.5-14.5) Platelet Count 244 10^3/uL (150-400) 241 10^3/uL (150-400) Mean Platelet Volume 10.7 fL (7.8-11.0) 11.2 fL (7.8-11.0) Neutrophils (%) (Auto) 76.2 % (41.0-85.0) 85.5 % (41.0-85.0) Lymphocytes (%) (Auto) 12.4 % (24.0-44.0) 5.1 % (24.0-44.0) Monocytes (%) (Auto) 8.9 % (5.0-12.0) 9.3 % (5.0-12.0) Neutrophils # (Auto) 11.2 10^3/uL (1.8-7.7) 16.1 10^3/uL (1.8-7.7) Lymphocytes # (Auto) 1.83 10^3/uL1 (1.0-4.8) 0.95 10^3/uL1 (1.0-4.8) Monocytes # (Auto) 1.3 10^3/uL (0.3-0.8) 1.8 10^3/uL (0.3-0.8) Absolute Immature Granulocyte (auto 0.07 10^3 u/L (0-2) 0.09 10^3 u/L (0-2) Absolute Eosinophils (auto) 0.4 10^3/uL (0.0-0.2) 0.0 10^3/uL (0.0-0.2) Immature Granulocytes % 0.50 % (0.00-0.50) 0.50 % (0.00-0.50) Eosinophils % 2.4 % (0.0-5.0) 0.0 % (0.0-5.0) Basophils % 0.1 % (0.0-0.2) 0.1 % (0.0-0.2) Basophils # 0.0 10^3/uL (0.0-0.1) 0.0 10^3/uL (0.0-0.1) Prothrombin Time 11.0 SEC (9.1-11.5) Prothrombin Time INR (Non-Therap) 1.1 Activated Partial Thromboplast Time 26.1 SEC (22.5-33.1) D-Dimer 3.55 mg/L (0.19-0.49) Sodium Level 141 mmol/L (132-145) 133 mmol/L (132-145) Potassium Level 4.8 mmol/L (3.6-5.2) 5.1 mmol/L (3.6-5.2) Chloride Level 104.0 mmol/L (96-109) 102.0 mmol/L (96-109) Carbon Dioxide Level 25.4 mmol/L (20.0-32) 25.0 mmol/L (20.0-32) Anion Gap 16.4 11.1 Blood Urea Nitrogen 23 mg/dL (7-18) 29 mg/dL (7-18) Creatinine 0.95 mg/dL (0.59-1.40) 0.92 mg/dL (0.59-1.40) Estimated GFR () 70.6 (>/=60) 73.2 (>/=60) Est GFR (CKD-EPI)(Non-Afr Maur[place]) 58.3 (>/=60) 60.5 (>/=60) BUN/Creatinine Ratio 24.0 31.0 Glucose Level 169 mg/dL (70-110) 232 mg/dL (70-110) Lactic Acid Level 1.6 mmol/L (0.5-1.9) Calcium Level 9.1 mg/dL (8.4-10.5) 9.0 mg/dL (8.4-10.5) Total Bilirubin 0.6 mg/dL (0.2-1.0) 0.3 mg/dL (0.2-1.0) Aspartate Amino Transf (AST/SGOT) 23 U/L (0-35) 15 U/L (0-35) Alanine Aminotransferase (ALT/SGPT) 14 U/L (12-78) 16 U/L (12-78) Alkaline Phosphatase 214 U/L (50-136) 193 U/L (50-136) Total Creatine Kinase 30 U/L (26-192) Creatine Kinase MB 1.1 ng/mL (0.5-3.6) Troponin I High Sensitivity < 4 ng/L (0-50) Pro-B-Type Natriuretic Peptide 1244 pg/mL (0-125) Total Protein 7.3 g/dL (6.4-8.2) 6.7 g/dL (6.4-8.2) Albumin 3.4 g/dL (3.4-5.0) 2.9 g/dL (3.4-5.0) Globulin 3.9 3.8 Albumin/Globulin Ratio 0.871 0.763 Procalcitonin 1.20 ng/mL (0.05-0.5) Influenza Type A Antigen NEGATIVE (NEG) Influenza Type B Antigen NEGATIVE (NEG) SARS-CoV-2 Antigen (Rapid) NEGATIVE (NEGATIVE) Blood Gas Sample Site RT RADIAL ARTERY Blood Gas pH 7.303 (7.350-7.450) Blood Gas PCO2 38.1 mmHg (35.0-45.0) Blood Gas PO2 65.1 mmHg (80.0-100.0) Blood Gas HCO3 18.5 mmol/L (22.0-26.0) Blood Gas Base Excess -7.3 mmol/L (-2.0-2.0) Jerome Test POSITIVE Arterial Blood Oxygen Saturation 90.7 % (94.0-97.00) Deoxyhemoglobin 9.2 % (0.0-5.0) Carboxyhemoglobin 0.7 % (0.0-3.9) Methemoglobin 0.0 % (0.00-5.0) Total Hemoglobin 12.6 % (12.0-17.8) Total Oxygen Concentration 16.0 % (13.5-17.5) Blood Gas Temperature 37.0 Oxygen Delivery Method (LAB) NASAL CANNULA FiO2 28.0 % (20-101) Total Carbon Dioxide 19.6 mmol/L (23-27) Segmented Neutrophils 95 % (31-76) Lymphocytes 3 % (25-36) Monocytes 2 % (3-9) Platelet Estimate ADEQUATE Platelet Morphology NORMAL IMAGING PROCEDURE:CHEST 1 VIEW COMPARISON:[facility], CT, CTA CHEST, 04/11/2022, 04:17 AM. [facility], CR, XRAY CHEST SINGLE VW, 04/11/2022, 02:29 AM. [facility], CR, XRAY CHEST 2 VWS, 12/13/2019, 11:48 AM. INDICATIONS:SOB FINDINGS: LUNGS/PLEURA:There are [id number] patchy interstitial and alveolar opacities throughout the right lung. There are mild interstitial and alveolar opacities in the left perihilar and infrahilar regions. No effusion or pneumothorax. VASCULATURE:Normal. Unremarkable pulmonary vasculature. CARDIAC:Normal. No cardiac silhouette abnormality or cardiomegaly. MEDIASTINUM:Calcified mediastinal lymph nodes compatible with prior granulomatous disease. Aortic arch calcifications. BONES:Osteopenia. Thoracic spondylosis. No acute findings. OTHER:There are surgical clips present in the right upper quadrant compatible with prior cholecystectomy. CONCLUSION:Findings consistent with multifocal pneumonia, right greater than left. Dictated by: Aidan Lynch M.D. on 10/10/2022 at 05:44 AM PROCEDURE:CTA CHEST COMPARISON:[facility], CT, CTA CHEST, 04/11/2022, 04:17 AM. INDICATIONS:dyspnea TECHNIQUE:Post contrast axial images through the chest with multiplanar MIP/3D reconstructions. FINDINGS: PULMONARY ARTERIES:No appreciable pulmonary embolus. LUNGS:Pulmonary hyperinflation. Diffuse interstitial thickening throughout the bilateral hemithoraces with patchy ground-glass appearing opacities bilaterally, suggesting multifocal infectious or inflammatory pneumonitis. There is more consolidative pneumonia within the mid to inferior hemithoraces bilaterally. Trace bilateral pleural effusions. No pneumothorax. CARDIAC:The heart is not enlarged. There is no pericardial effusion. THORACIC AORTA:Mild scattered atherosclerotic calcifications. No aneurysm or dissection. MEDIASTINUM:Small nodules within the thyroid lobes bilaterally, measuring up to approximately 1 cm on the left. There are multiple calcified hilar and mediastinal lymph nodes. No suspicious mediastinal lymphadenopathy. Patulous gas-filled esophagus with apparent postoperative changes of the stomach. BONES:Degenerative changes of the spine. No acute abnormality. CONCLUSION: 1. No appreciable pulmonary embolus. 2. Patchy ground-glass appearing opacities within the bilateral hemithoraces would suggest multifocal infectious or inflammatory pneumonitis. There is more consolidative pneumonia within the mid to inferior hemithoraces bilaterally with trace bilateral pleural effusions. This is superimposed on a background of hyperinflation and diffuse interstitial thickening suggesting underlying chronic lung disease such as COPD. Small calcified hilar and mediastinal lymph nodes are similar to the previous study. 3. Additional findings as discussed above. Dictated by: David Carranza M.D. On 10/10/2022 at 08:44 AM SUMMARY 67 year old female with COPD, CAD, HTN, CHF admitted for pneumonia. ASSESSMENT/PLAN pneumonia - back on baseline supplemental O2. Rocephin and Azithromycin at this time. Mucinex. Duonebs, one time solumedrol. HTN - restarting amlodipine 10mg qD, metoprolol 50mg qD Depression - paroxetine 40mg GERD - protonix Per most recent clinic note - hx of CREST syndrome, sarcoidosis of the lung, anxiety, Vit D deficiency, constipation and diarrhea. NELLY DORAN MD Oct 10, 2022 11:44
[2022-10-10 13:20] VITALS: BP 130/76
[2022-10-10] MEDS ORDERED: CYCL10TA19 PO (15:35)
[2022-10-10] MEDS ORDERED: GABA800T5 PO (15:35)
[2022-10-10] MEDS ORDERED: HYDR-3105 PO (15:35)
[2022-10-10] MEDS ORDERED: PARO40TA3 PO (15:35)
[2022-10-10] MEDS ORDERED: IPRA3AMP25 INH (15:35)
[2022-10-10] MEDS ORDERED: SPIR25TA5 PO (15:35)
[2022-10-10 16:05] VITALS: BP 119/84
[2022-10-10] MEDS: NORCO 10MG PO SCH ×2 (19:00→23:55)
[2022-10-10] MEDS: NEURONTIN PO SCH (21:39)
[2022-10-10 23:30] VITALS: BP 119/69
[2022-10-11 04:00] VITALS: BP 107/68
[2022-10-11 05:27] LABS: BASOPHIL % 0.1 % (0.0-0.2); LYMPHOCYTES # 0.95 10^3/uL1 (1.0-4.8); LYMPHOCYTES % 5.1 % (24.0-44.0); MEAN CORP HGB 28.2 pg (26-34); MONOCYTES # 1.8 10^3/uL (0.3-0.8); MONOCYTES % 9.3 % (5.0-12.0); NEUTROPHIL # 16.1 10^3/uL (1.8-7.7); NEUTROPHILS % 85.5 % (41.0-85.0); PLATELET COUNT 241 10^3/uL (150-400); RED CELL DISTRIBUTION WIDTH 14.2 % (11.5-14.5)
[2022-10-11] MEDS: NORCO 10MG PO SCH ×3 (05:43→18:29)
[2022-10-11 06:08] LABS: LYMPHOCYTE 3 % (25-36); MONOCYTE 2 % (3-9); SEGMENTED NEUTROPHILS 95 % (31-76)
[2022-10-11 07:01] VITALS: BP 114/70
[2022-10-11] MEDS ORDERED: ZITHROMAX PO SCH (09:00)
[2022-10-11] MEDS ORDERED: VANCOMYCIN HCL 1 GM in NS 250ML 250 ML IV ONE (09:30)
[2022-10-11] MEDS: ROCEPHIN 1,000 MG in NS 100ML 100 ML IV SCH (09:37)
[2022-10-11] MEDS: MUCUS RELIEF PO SCH ×2 (09:37→22:14)
[2022-10-11] MEDS: PROTONIX IV IV SCH (09:37)
[2022-10-11] MEDS: PAXIL PO SCH (09:38)
[2022-10-11] MEDS: TOPROL XL PO SCH (09:38)
[2022-10-11] MEDS: NEURONTIN PO SCH ×3 (09:38→22:14)
[2022-10-11] MEDS: NORVASC PO SCH (09:38)
[2022-10-11 11:04] VITALS: BP 121/80
[2022-10-11] MEDS ORDERED: LASIX IV SCH (13:30)
--- NOTE | 2022-10-11 13:42 | PRM.PN ---
PROGRESS NOTE SUBJECTIVE Pt seen and examined today. She reported to feeling better. She is upset her IV pump is beeping and she is wanting a change in her diet at this time. She is wanting to increase her gabapentin further (on 600mg TID). She is complaining that the left side of her esophagus doesn't work because of the stones in her lung? No acute events overnight. 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, No Motor/Sensory Deficits, Normal Mood Skin: Normal Color, Warm/Dry VITALS Vital Signs Date Time Temp Pulse Resp B/P (MAP) Pulse Ox O2 Delivery O2 Flow Rate FiO2 10/11/22 10:18 76 16 96 Nasal Cannula* 2 28 10/11/22 09:38 114/70 10/11/22 07:01 98.2 LABS/XRAYS Laboratory Tests Test 10/11/22 05:03 10/11/22 05:41 White Blood Count 18.8 10^3/uL Red Blood Count 3.76 10^6/uL Hemoglobin 10.6 g/dL Hematocrit 34.2 % Mean Corpuscular Volume 91.0 fL Mean Corpuscular Hemoglobin 28.2 pg Mean Corpuscular Hemoglobin Concent 31.0 g/dL Red Cell Distribution Width 14.2 % Platelet Count 241 10^3/uL Mean Platelet Volume 11.2 fL Neutrophils (%) (Auto) 85.5 % Lymphocytes (%) (Auto) 5.1 % Monocytes (%) (Auto) 9.3 % Neutrophils # (Auto) 16.1 10^3/uL Lymphocytes # (Auto) 0.95 10^3/uL1 Monocytes # (Auto) 1.8 10^3/uL Absolute Immature Granulocyte (auto 0.09 10^3 u/L Absolute Eosinophils (auto) 0.0 10^3/uL Immature Granulocytes % 0.50 % Eosinophils % 0.0 % Basophils % 0.1 % Basophils # 0.0 10^3/uL Sodium Level 133 mmol/L Potassium Level 5.1 mmol/L Chloride Level 102.0 mmol/L Carbon Dioxide Level 25.0 mmol/L Anion Gap 11.1 Blood Urea Nitrogen 29 mg/dL Creatinine 0.92 mg/dL Estimated GFR () 73.2 Est GFR (CKD-EPI)(Non-Afr [place]) 60.5 BUN/Creatinine Ratio 31.0 Glucose Level 232 mg/dL Calcium Level 9.0 mg/dL Total Bilirubin 0.3 mg/dL Aspartate Amino Transf (AST/SGOT) 15 U/L Alanine Aminotransferase (ALT/SGPT) 16 U/L Alkaline Phosphatase 193 U/L Total Protein 6.7 g/dL Albumin 2.9 g/dL Globulin 3.8 Albumin/Globulin Ratio 0.763 Segmented Neutrophils 95 % Lymphocytes 3 % Monocytes 2 % Platelet Estimate ADEQUATE Platelet Morphology NORMAL Current Medications Medications (Trade) Dose Ordered Sig/Velasquez Route PRN Reason Start Time Stop Time Status Last Admin Dose Admin Albuterol/ Ipratropium (Duo 0.5-3(2.5) Mg/3 ml) 3 ml STAT STAT IH 10/10/22 05:25 10/10/22 05:29 DC 10/10/22 06:08 Methylprednisolone Sodium Succinate (Solu-Medrol) 125 mg STAT STAT IV 10/10/22 05:25 10/10/22 05:34 DC Albuterol/ Ipratropium (Duo 0.5-3(2.5) Mg/3 ml) 3 ml STK-MED ONCE IH 10/10/22 06:03 10/10/22 06:04 DC Sodium Chloride 100 ml @ ud STK-MED ONCE IV 10/10/22 06:16 10/10/22 06:17 DC Ceftriaxone Sodium 2000 mg/ Sodium Chloride 100 ml @ 100 mls/hr STAT STAT IV 10/10/22 06:15 10/10/22 09:24 DC 10/10/22 06:23 Azithromycin 500 mg/Sodium Chloride 250 ml @ 175 mls/hr STAT STAT IV 10/10/22 06:15 10/10/22 09:26 DC 10/10/22 06:52 Ceftriaxone Sodium (Rocephin) 2,000 mg STK-MED ONCE .ROUTE 10/10/22 06:17 10/10/22 06:17 DC Sodium Chloride 250 ml @ ud STK-MED ONCE .ROUTE 10/10/22 06:39 10/10/22 06:40 DC Acetaminophen (Tylenol) 500 mg Q6H PRN PO PAIN 1 - 3 10/10/22 07:30 11/09/22 07:29 Morphine Sulfate (Morphine Sulfate) 4 mg Q4H PRN IV PAIN 7 - 10 10/10/22 07:30 11/09/22 07:29 10/10/22 15:15 Ondansetron HCl (Zofran) 4 mg Q4H PRN IV NAUSEA / VOMITING 10/10/22 07:30 11/09/22 07:29 Pantoprazole Sodium (Protonix Iv) 40 mg DAILY IV 10/10/22 09:00 11/09/22 08:59 10/11/22 09:37 Ceftriaxone Sodium 1000 mg/ Sodium Chloride 100 ml @ 100 mls/hr Q24HRS IV 10/11/22 09:00 11/10/22 08:59 10/11/22 09:37 Azithromycin (Zithromax) 250 mg DAILY PO 10/11/22 09:00 10/11/22 09:17 DC Albuterol/ Ipratropium (Duo 0.5-3(2.5) Mg/3 ml) 3 ml RTQ4 PRN IH wheezing 10/10/22 07:30 11/09/22 07:29 10/11/22 12:20 Guaifenesin (Mucus Relief Er) 600 mg BID PO 10/10/22 09:00 11/09/22 08:59 10/11/22 09:37 Acetaminophen/ Hydrocodone Bitart ([place] 10mg) 1 each Q8HR PRN PO PAIN 4 - 6 10/10/22 08:00 10/10/22 18:57 DC 10/10/22 18:28 Metoprolol Succinate (Toprol Xl) 50 mg DAILY PO 10/11/22 09:00 11/10/22 08:59 10/11/22 09:38 Amlodipine Besylate (Norvasc) 10 mg DAILY PO 10/11/22 09:00 11/10/22 08:59 10/11/22 09:38 Paroxetine HCl (Paxil) 40 mg DAILY PO 10/11/22 09:00 11/10/22 08:59 10/11/22 09:38 Acetaminophen/ Hydrocodone Bitart ([place] 10mg) 1 each Q6HR PO 10/10/22 19:00 11/09/22 18:59 10/11/22 12:03 Gabapentin (Neurontin) 600 mg TID PO 10/10/22 21:00 11/09/22 20:59 10/11/22 09:38 Vancomycin HCl 1 gm/Sodium Chloride 250 ml @ 175 mls/hr Q12HR ONCE IV 10/11/22 09:30 10/11/22 09:35 DC Vancomycin HCl 1 gm/Sodium Chloride 250 ml @ 175 mls/hr Q12HR IV 10/11/22 10:00 11/10/22 09:59 ASSESSMENT & PLAN pneumonia - at baseline supplemental O2. Cont Rocephin but changing azithromycin to Vancomycin as there is an increase of leukocytosis and pt reports she was taking azithromycin at home. Mucinex. Duonebs HTN - cont amlodipine 10mg qD, metoprolol 50mg qD Depression - paroxetine 40mg GERD - protonix Chronic pain syndrome - norco scheduled Q6h, gabapentin will stay at 600mg TID, flexeril at night. Reported dysphagia - reglan with meals, pureed diet Overall she sounds better on auscultation. She is very argumentative today and is pressing the call light multiple times an hour and has been somewhat rude to my nursing staff when they are assisting her. She is demanding changes in her pain regimen. She has no respiratory related complaints. Cont abx and maybe appropriate for discharge in next 24-48hr. NELLY DORAN MD Oct 11, 2022 13:42
[2022-10-11] MEDS: VANCOMYCIN HCL 1 GM in NS 250ML 250 ML IV SCH (13:52)
[2022-10-11 15:55] VITALS: BP 104/67
[2022-10-11] MEDS: REGLAN PO SCH ×2 (17:52→22:14)
[2022-10-11 21:13] VITALS: BP 113/71
[2022-10-11] MEDS: FLEXERIL PO SCH (22:14)
[2022-10-12] VITALS: BP 113/70
[2022-10-12] MEDS: NORCO 10MG PO SCH ×4 (02:19→17:50)
[2022-10-12] MEDS: VANCOMYCIN HCL 1 GM in NS 250ML 250 ML IV SCH ×3 (02:20→21:00)
[2022-10-12 08:00] VITALS: BP 112/71
--- NOTE | 2022-10-12 08:04 | PRM.PN ---
PROGRESS NOTE SUBJECTIVE Pt seen and examined today. She is in better spirits today and has no complaints. She reports to be feeling better than yesterday overall. She slept well. No acute events overnight. OBJECTIVE General Appearance: alert, calm this morning Respiratory: no respiratory distress, prolonged expirations, wheezing Cardiovascular: Normal Peripheral Pulses, Regular Rate, Rhythm, No Edema, No Gallop, No JVD, No Murmur Gastrointestinal: Normal Bowel Sounds, No Organomegaly, No Pulsatile Mass, Non Tender, Soft Extremities: Normal Range of Motion, Non-Tender, Normal Inspection, No Pedal Edema, Neurologic/Psychiatric: life teacher II-XII NML, No Motor/Sensory Deficits, Normal Mood Skin: Normal Color, Warm/Dry VITALS Vital Signs Date Time Temp Pulse Resp B/P (MAP) Pulse Ox O2 Delivery O2 Flow Rate FiO2 10/12/22 00:00 97.2 75 18 113/70 (84) 95 Nasal Cannula* 2 28 LABS/XRAYS Current Medications Medications (Trade) Dose Ordered Sig/Velasquez Route PRN Reason Start Time Stop Time Status Last Admin Dose Admin Albuterol/ Ipratropium (Duo 0.5-3(2.5) Mg/3 ml) 3 ml STAT STAT IH 10/10/22 05:25 10/10/22 05:29 DC 10/10/22 06:08 Methylprednisolone Sodium Succinate (Solu-Medrol) 125 mg STAT STAT IV 10/10/22 05:25 10/10/22 05:34 DC Albuterol/ Ipratropium (Duo 0.5-3(2.5) Mg/3 ml) 3 ml STK-MED ONCE IH 10/10/22 06:03 10/10/22 06:04 DC Sodium Chloride 100 ml @ ud STK-MED ONCE IV 10/10/22 06:16 10/10/22 06:17 DC Ceftriaxone Sodium 2000 mg/ Sodium Chloride 100 ml @ 100 mls/hr STAT STAT IV 10/10/22 06:15 10/10/22 09:24 DC 10/10/22 06:23 Azithromycin 500 mg/Sodium Chloride 250 ml @ 175 mls/hr STAT STAT IV 10/10/22 06:15 10/10/22 09:26 DC 10/10/22 06:52 Ceftriaxone Sodium (Rocephin) 2,000 mg STK-MED ONCE .ROUTE 10/10/22 06:17 10/10/22 06:17 DC Sodium Chloride 250 ml @ ud STK-MED ONCE .ROUTE 10/10/22 06:39 10/10/22 06:40 DC Acetaminophen (Tylenol) 500 mg Q6H PRN PO PAIN 1 - 3 10/10/22 07:30 11/09/22 07:29 Morphine Sulfate (Morphine Sulfate) 4 mg Q4H PRN IV PAIN 7 - 10 10/10/22 07:30 11/09/22 07:29 10/10/22 15:15 Ondansetron HCl (Zofran) 4 mg Q4H PRN IV NAUSEA / VOMITING 10/10/22 07:30 11/09/22 07:29 Pantoprazole Sodium (Protonix Iv) 40 mg DAILY IV 10/10/22 09:00 11/09/22 08:59 10/11/22 09:37 Ceftriaxone Sodium 1000 mg/ Sodium Chloride 100 ml @ 100 mls/hr Q24HRS IV 10/11/22 09:00 11/10/22 08:59 10/11/22 09:37 Azithromycin (Zithromax) 250 mg DAILY PO 10/11/22 09:00 10/11/22 09:17 DC Albuterol/ Ipratropium (Duo 0.5-3(2.5) Mg/3 ml) 3 ml RTQ4 PRN IH wheezing 10/10/22 07:30 11/09/22 07:29 10/11/22 12:20 Guaifenesin (Mucus Relief Er) 600 mg BID PO 10/10/22 09:00 11/09/22 08:59 10/11/22 22:14 Acetaminophen/ Hydrocodone Bitart ([place] 10mg) 1 each Q8HR PRN PO PAIN 4 - 6 10/10/22 08:00 10/10/22 18:57 DC 10/10/22 18:28 Metoprolol Succinate (Toprol Xl) 50 mg DAILY PO 10/11/22 09:00 11/10/22 08:59 10/11/22 09:38 Amlodipine Besylate (Norvasc) 10 mg DAILY PO 10/11/22 09:00 11/10/22 08:59 10/11/22 09:38 Paroxetine HCl (Paxil) 40 mg DAILY PO 10/11/22 09:00 11/10/22 08:59 10/11/22 09:38 Acetaminophen/ Hydrocodone Bitart ([place] 10mg) 1 each Q6HR PO 10/10/22 19:00 11/09/22 18:59 10/12/22 02:19 Gabapentin (Neurontin) 600 mg TID PO 10/10/22 21:00 11/09/22 20:59 10/11/22 22:14 Vancomycin HCl 1 gm/Sodium Chloride 250 ml @ 175 mls/hr Q12HR ONCE IV 10/11/22 09:30 10/11/22 09:35 DC Vancomycin HCl 1 gm/Sodium Chloride 250 ml @ 175 mls/hr Q12HR IV 10/11/22 10:00 11/10/22 09:59 10/12/22 02:20 Metoclopramide HCl (Reglan) 10 mg ACHS PO 10/11/22 17:30 11/10/22 17:29 10/11/22 22:14 Furosemide (Lasix) 20 mg OT IV 10/11/22 13:30 10/12/22 23:59 Cyclobenzaprine HCl (Flexeril) 10 mg HS PO 10/11/22 21:00 11/10/22 20:59 10/11/22 22:14 ASSESSMENT & PLAN pneumonia - at baseline supplemental O2. Cont Rocephin but changing azithromycin to Vancomycin as there is an increase of leukocytosis and pt reports she was taking azithromycin at home. Mucinex. Duonebs HTN - cont amlodipine 10mg qD, metoprolol 50mg qD Depression - paroxetine 40mg GERD - protonix Chronic pain syndrome - norco scheduled Q6h, gabapentin will stay at 600mg TID, flexeril at night. Reported dysphagia - reglan with meals, pureed diet Overall she sounds better on auscultation. She is very argumentative today and is pressing the call light multiple times an hour and has been somewhat rude to my nursing staff when they are assisting her. She is demanding changes in her pain regimen. She has no respiratory related complaints. Cont abx and maybe dulce ropriate for discharge in next 24-48hr. NELLY DROAN MD Oct 12, 2022 08:04
[2022-10-12] MEDS: NORVASC PO SCH (08:49)
[2022-10-12] MEDS: MUCUS RELIEF PO SCH ×2 (08:49→22:01)
[2022-10-12] MEDS: TOPROL XL PO SCH (08:49)
[2022-10-12] MEDS: PROTONIX IV IV SCH (08:49)
[2022-10-12] MEDS: PAXIL PO SCH (08:49)
[2022-10-12] MEDS: NEURONTIN PO SCH ×3 (08:50→22:01)
[2022-10-12 08:51] LABS: BASOPHIL % 0.3 % (0.0-0.2); EOSINOPHIL # 0.5 10^3/uL (0.0-0.2); EOSINOPHIL % 4.7 % (0.0-5.0); LYMPHOCYTES # 0.86 10^3/uL1 (1.0-4.8); LYMPHOCYTES % 8.5 % (24.0-44.0); MEAN CORP HGB 27.8 pg (26-34); MONOCYTES # 0.8 10^3/uL (0.3-0.8); MONOCYTES % 7.9 % (5.0-12.0); NEUTROPHIL # 7.9 10^3/uL (1.8-7.7); NEUTROPHILS % 77.8 % (41.0-85.0); PLATELET COUNT 223 10^3/uL (150-400); RED CELL DISTRIBUTION WIDTH 14.1 % (11.5-14.5)
[2022-10-12] MEDS: REGLAN PO SCH ×4 (08:52→22:01)
[2022-10-12] MEDS: ROCEPHIN 1,000 MG in NS 100ML 100 ML IV SCH (08:52)
[2022-10-12 09:06] LABS: CARBON DIOXIDE 27.2 mmol/L (20.0-32)
[2022-10-12 12:00] VITALS: BP 116/74
[2022-10-12 16:00] VITALS: BP 112/74
[2022-10-12 20:41] VITALS: BP 115/66
--- NOTE | 2022-10-12 21:41 | NUR ---
ELEVATED VANC TROUGH 23.1 , DOSE HELD, PHARMACY TO ADJUST DOSE PER PROTOCOL
[2022-10-12] MEDS: FLEXERIL PO SCH (22:00)
[2022-10-13 00:54] VITALS: BP 127/73
[2022-10-13 05:03] VITALS: BP 119/71
[2022-10-13] MEDS: NORCO 10MG PO SCH ×3 (06:03→11:54)
[2022-10-13] MEDS: REGLAN PO SCH ×2 (07:21→11:57)
[2022-10-13 08:16] VITALS: BP 112/67
[2022-10-13] MEDS: TOPROL XL PO SCH (08:40)
[2022-10-13] MEDS: NEURONTIN PO SCH (08:40)
[2022-10-13] MEDS: ROCEPHIN 1,000 MG in NS 100ML 100 ML IV SCH (08:40)
[2022-10-13] MEDS: PROTONIX IV IV SCH (08:40)
[2022-10-13] MEDS: NORVASC PO SCH (08:40)
[2022-10-13] MEDS: MUCUS RELIEF PO SCH (08:40)
[2022-10-13] MEDS: PAXIL PO SCH (08:40)
[2022-10-13] MEDS ORDERED: VANCOMYCIN 750 MG/150 ML BAG 150 ML IV SCH (10:00)
--- NOTE | 2022-10-13 10:04 | NUR ---
IV IV INFILTRATED AT THIS TIME, PT STATED "I'M GOING HOME, SO I DON'T WANT TO BE RE-STUCK." THIS NURSE RELAYED INFORMATION TO DR. VERNON, AND RECEIVED ORDER TO LEAVE IV OUT AT THIS TIME, AND HE WILL LET ME KNOW IF HE IS GOING TO KEEP PT ONE MORE DAY FOR IV ABX, AND IF SO, SHE WILL NEED A NEW IV.
[2022-10-13] MEDS ORDERED: AMOX1TAB60 PO (10:43)
[2022-10-13] MEDS ORDERED: Metoprolol Succinate PO (10:43)
[2022-10-13] MEDS ORDERED: [UNRECOGNIZED DRUG - CODE] PO (10:43)
[2022-10-13] MEDS ORDERED: PRED20TA PO (10:48)
--- NOTE | 2022-10-13 11:48 | PRM.DC ---
Discharge Summary Date of Discharge: Oct 13, 2022 Time of Request to Discharge: 09:00 Hospital Course 67 year old female with COPD, HTN, depression, GERD presented to the ED over night for shortness of breath. Sx of dyspnea, cough, congestion present for 1 week. Denied fever or chills, GI sx, CP, abd pain, rash. She saw her PCP on 10/05/22 and was started on azithromycin and given IM Kenalog. in the ED she was found to have leukocytosis of 14,700. BNP of 1244 (no reported hx of CHF per clinic notes and no ECHO found). Lactic acid of 1.6. d-dimer elevated but no CTA in ED done. CXR revealed multifocal pneumonia with right greater than left. She was given Rocephin 2g and Azithromycin 500mg in the ED and was admitted. Patient was admitted to hospital for further management. Started on IV antibiotics. Today patient is feeling much better. Ambulating getting out of bed. Patient wants to go home. I offered her to stay 1 more night but patient wants to go home today. We will switch IV antibiotics to oral levofloxacin and Augmentin. Continue for 1 more week. Medication reconciliation completed. Patient will be discharged home. Patient History: Patient reports no known family medical history. Exam/Vitals Vital Signs Date Time Temp Pulse Resp B/P (MAP) Pulse Ox O2 Delivery O2 Flow Rate FiO2 10/13/22 10:52 Nasal Cannula 2.00 10/13/22 08:50 76 18 96 28 10/13/22 08:40 112/67 10/13/22 08:16 97.6 General: Alert, Oriented X3, No acute distress HEENT: Atraumatic, PERRLA Neck: Supple, No JVD, No thyromegaly Lungs: Other Heart: Regular rate, Normal S1, Normal S2 Abdomen: Normal bowel sounds, Soft Extremities: No clubbing, No cyanosis Skin: No significant lesion Neuro: Normal speech, Normal tone Psych/Mental Status: Mood NL Scheduled Amoxicillin/Potassium Clav (Augmentin 500-125 Tablet), 1 TAB PO BID Gabapentin (Gabapentin), 1 TAB PO QID, (Reported) Levofloxacin (Levaquin), 750 MG PO DAILY Paroxetine Hcl (Paroxetine Hcl), 1 TAB PO QD, (Reported) Prednisone (Prednisone), 20 MG PO DAILY24 Spironolactone (Spironolactone), 1 TAB PO QD, (Reported) [Metoprolol Succinate], 50 MG PO DAILY Scheduled PRN Cyclobenzaprine Hcl (Flexeril), 1 TAB PO HS PRN for MUSCLE SPASM, (Reported) Hydrocodone Bit/Acetaminophen ([place] 10-325), 1 EACH PO Q6HR PRN for PAIN, (Reported) Ipratropium/Albuterol Sulfate (Iprat-Albut 0.5-3(2.5) Mg/3 Ml), 1 AMPULE INH QID PRN for wheezing, (Reported) Sepsis Evaluation @ Discharge 10/13/22 09:38 Plan Problems: (1) Acute and chronic respiratory failure ICD Code: J96.20 - Acute and chronic respiratory failure, unspecified whether with hypoxia or hypercapnia SNOMED: 14824554 (2) COPD exacerbation Status: Acute ICD Code: J44.1 - Chronic obstructive pulmonary disease with (acute) exacerbation SNOMED: 775698601 (3) Pneumonia Status: Acute ICD Code: J18.9 - Pneumonia, unspecified organism SNOMED: 847964698 Plan 67 year old female with COPD, HTN, depression, GERD presented to the ED overnight for shortness of breath. Sx of dyspnea, cough, congestion present for 1 week. Denied fever or chills, GI sx, CP, abd pain, rash. She saw her PCP on 10/05/22 and was started on azithromycin and given IM Kenalog. in the ED she was found to have leukocytosis of 14,700. BNP of 1244 (no reported hx of CHF per clinic notes and no ECHO found). Lactic acid of 1.6. d-dimer elevated but no CTA in ED done. CXR revealed multifocal pneumonia with right greater than left. She was given Rocephin 2g and Azithromycin 500mg in the ED and was admitted. Patient was admitted to hospital for further management. Started on IV antibiotics. Today patient is feeling much better. Ambulating getting out of bed. Patient wants to go home. I offered her to stay 1 more night but patient wants to go home today. We will switch IV antibiotics to oral levofloxacin and Augmentin. Continue for 1 more week. Medication reconciliation completed. P atient will be discharged home Problem Qualifiers (1) Pneumonia: Pneumonia type: due to unspecified organism Laterality: bilateral Lung location: unspecified part of lung Qualified Codes: J18.9 - Pneumonia, unspecified organism JANEEN COOMBS MD Oct 13, 2022 11:48
[2022-10-13 11:52] VITALS: BP 118/54
[2022-10-13 12:25] VITALS: BP 118/54
--- NOTE | 2022-10-13 12:26 | NUR ---
DISCHARGE PLANNING: CM/SS VISITED WITH PT REGARDING DISCHARGE PLAN AND NEED. PT LIVES HOME ALONE AND RECENTLY MOVED HERE FROM [place] TO BE CLOSER TO FAMILY. PT'S PCP IS Guerda NETTLES. PT IS INDEPENDENT ON ALDS AND DOES NOT USE ANY DME. PT HAS HOME O2 IN PLACE. PT WAS EDUCATED ON HH CARE BENEFITS AND AT THIS TIME PT DID NOT THINK IT WOULD BE BENEFICIAL. PT'S GOAL IS TO RETURN HOME TODAY TO ROUTINE SELF CARE. CM/SS TO CONTINUE TO MONITOR AND ASSIST WITH DISCHARGE PLANNING NEEDS. CM/SS TO CONTINUE TO FOLLOW. Addendum: 10/13/22 at 1713 by Dayanara Marie RN,Case Managemen GANGA CM SENT EMAIL TO [email or web address] AND NOTIFIED OF PATIENT'S F/U APPT WITH HO AND DISCHARGE FROM THE HOSPITAL VIA [facility] EMAIL.
--- NOTE | 2022-10-13 12:27 | NUR ---
DISCHARGE DISCHARGE INSTRUCTIONS GIVEN TO PT BOTH VERBALLY AND WRITTEN AT THIS TIME. PT VERBALIZES UNDERSTANDING OF ALL TEACHING, WITH NO QUESTIONS OR CONCERNS. IV REMOVED EARLIER DURING SHIFT DUE TO INFILTRATION, PT TOLERATED REMOVAL WELL. PT WHEELED OFF OF UNIT VIA WHEELCHAIR TO PRIVATE AUTO ACCOMPANIED BY FAMILY. RELINQUISHED CARE OF PT.
== END 2022-10-13 12:27 | disposition home or self-care (01) | DRG 871 ==
LOC: EDBD 05:00 → ER 05:00 → EDSEX 05:00 → MS 06:37
PROVIDERS: ADMIT Hospitalist; ATTEND Internal Medicine
DX: A41.9 Sepsis, unspecified organism (principal); J18.9 Pneumonia, unspecified organism; J96.20 Acute and chronic respiratory failure, unspecified whether with hypoxia or hypercapnia; J44.1 Chronic obstructive pulmonary disease with (acute) exacerbation; J44.0 Chronic obstructive pulmonary disease with (acute) lower respiratory infection; I25.10 Atherosclerotic heart disease of native coronary artery without angina pectoris; I11.0 Hypertensive heart disease with heart failure; M34.1 CR(E)ST syndrome; T88.59XA Other complications of anesthesia, initial encounter; K21.9 Gastro-esophageal reflux disease without esophagitis; D86.9 Sarcoidosis, unspecified; Z98.84 Bariatric surgery status; F32.A Depression, unspecified; I50.9 Heart failure, unspecified; F41.9 Anxiety disorder, unspecified; K59.00 Constipation, unspecified; Z79.899 Other long term (current) drug therapy; Z20.822 Contact with and (suspected) exposure to COVID-19
CPT/HCPCS: 36415; 36600; 71045; 71275; 80053; 80202; 82550; 82553; 82803; 83605; 83880; 84145; 84484; 85025; 85379; 85610; 85730; 87040; 87426; 87804; 93005; 94640; 99291; C9113; G0378; J0456; J0696; J1100; J1940; J3370; J7050; J8597; Q9965